=== PATIENT | female | born 1965 | race African-American/Black ===

== ENCOUNTER 2019-03-27 11:52 | Emergency (ER) | payer MEDICAID ==
[~2019-03-27] VITALS: Ht 167.6 cm; Wt 66.0 kg
[2019-03-27] MEDS: IBUPROFEN 600MG TABLET PO ONE (12:40)
[2019-03-27 13:07] LABS: BASOPHILS % 0.7 % (0.0-2.0); EOSINOPHILS % 1.8 % (0.0-5.0); HEMATOCRIT. 41.1 % (36.0-48.0); HEMOGLOBIN. 13.6 g/dL (12.0-16.0); LYMPHOCYTES % 30.3 % (20.0-50.0); MEAN CORPUSCULAR HEMOGLOBIN 30.1 pg (28.0-32.0); MEAN CORPUSCULAR VOLUME 90.9 fL (81.0-99.0); MEAN PLATELET VOLUME 8.5 fl (7.4-10.4); MONOCYTES % 8.1 % (2.0-8.0); NEUTROPHILS % 59.1 % (40.0-76.0); PLATELET 485 x1000/uL (130-400); RED BLOOD CELL COUNT 4.52 mill/uL (4.2-5.4); RED CELL DISTRIBUTION WIDTH 14.3 % (11.6-14.6)
[2019-03-27 13:15] LABS: CHLORIDE 100 mEq/L (98-107)
[2019-03-27] MEDS: POTASSIUM CHLORIDE 20MEQ TABLET SR PO ONE (13:54)
[2019-03-27] MEDS: DEXTROSE 50% WATER 50ML SYRINGE IV ONE (15:01)
[2019-03-27 16:40] VITALS: BP 118/74
[2019-03-27] MEDS: ACETAMINOPHEN 325MG TABLET PO ONE (16:40)
== END 2019-03-27 17:00 | disposition home or self-care (01) ==
LOC: ER 12:04
DX: G47.62 Sleep related leg cramps (principal); E11.649 Type 2 diabetes mellitus with hypoglycemia without coma; I10 Essential (primary) hypertension; Z86.73 Personal history of transient ischemic attack (TIA), and cerebral infarction without residual deficits
CPT/HCPCS: 36415; 80053; 82962; 85025; 93970; 96374; 99284; Z7610